=== PATIENT | male | born 1975 | race Hispanic/Latino ===

== ENCOUNTER 2019-07-05 06:59 | Emergency (ER) | payer OTHER ==
[~2019-07-05] VITALS: Ht 172.7 cm; Wt 92.0 kg
[2019-07-05 07:46] LABS: HEMATOCRIT 46.5 % (39.0-50.0); IMMATURE GRANULOCYTES 0.7 % (0.0-5.0); MEAN CELL VOLUME 87.9 fL CALC (80.0-100.0); MEAN CORPUSCULAR HGB 30.2 pG CALC (26.0-32.0); MEAN CORPUSCULAR HGB CONC 34.4 g/L CALC (32.0-36.0); NEUT# 7.14 thou/uL (1.82-7.42); RED BLOOD COUNT 5.29 mill/uL (4.70-6.10); RED CELL DISTRI WIDTH 12.4 % (11.5-15.5)
[2019-07-05 07:59] LABS: ALBUMIN 4.5 g/dL (3.2-5.0); ALKALINE PHOSPHATASE 100 u/l (38-126); ANION GAP 15 (6-22 (CALC)); BILIRUBIN, TOTAL 0.4 mg/dL (0.0-1.4); BUN 12 mg/dL (9-20); BUN/CREATININE RATIO 18 (12-20 (CALC)); CARBON DIOXIDE 23 mmol/l (22-30); CHLORIDE 104 mmol/l (95-108); CREATININE 0.7 mg/dL (0.7-1.3); GFR > 60 ML/MIN (>=60 (CALC)); GFR FOR AFR.AMER. > 60 ML/MIN (>=60 (CALC)); LIPASE 38 u/l (23-300); POTASSIUM 3.7 mmol/l (3.5-5.1); SGOT/AST 39 u/l (17-59); SODIUM 139 mmol/l (137-146); TOTAL PROTEIN 8.2 g/dL (6.3-8.2)
[2019-07-05 09:27] VITALS: BP 140/90
== END 2019-07-05 08:26 | DRG 89 ==
LOC: ED 06:59
PROVIDERS: Family Medicine
PROC: 0HQ0XZZ Repair Scalp Skin, External Approach (ICD-10-PCS; principal; 2019-07-05)
DX: S06.0X9A Concussion with loss of consciousness of unspecified duration, initial encounter (principal); E87.2 Acidosis; S01.01XA Laceration without foreign body of scalp, initial encounter; R07.89 Other chest pain; V59.50XA Passenger in pick-up truck or van injured in collision with unspecified motor vehicles in traffic accident, initial encounter; R40.2412 Glasgow coma scale score 13-15, at arrival to emergency department
CPT/HCPCS: Q9967